=== PATIENT | male | born 1995 | race Caucasian/White ===

== ENCOUNTER 2019-04-09 16:11 | Inpatient (IN) ==
[2019-04-09] MEDS ORDERED: methylPREDNISolone 125 MG/2 ML VIAL IV STA (16:31)
[2019-04-09 16:50] LABS: Basophils # (auto) 0.03 K/uL (0-0.2); Basophils % (auto) 0.2 %; Eosinophils # (auto) 0.09 K/uL (0-0.5); Eosinophils % (auto) 0.7 %; Hematocrit (blood only) 37.9 % (42-52); Hemoglobin 13.1 g/dL (14.0-18.0); Immature Granulocytes # (auto) 0.03 K/uL (0.00-0.02); Immature Granulocytes % (auto) 0.2 %; Lymphocytes # (auto) 1.92 K/uL (1.2-3.4); Lymphocytes % (auto) 15.7 %; Mean Corpuscular Hgb Conc 34.6 g/dL (32-36); Mean Corpuscular Volume 83.8 fL (80-100); Mean Platelet Volume 10.2 fL (7.4-10.4); Monocytes # (auto) 1.25 K/uL (0.11-0.59); Monocytes % (auto) 10.2 %; Neutrophils # (auto) 8.92 K/uL (1.4-6.5); Platelet Count 271 K/uL (130-400); RDW Coefficient of Variation 12.3 % (11.5-14.5); RDW Standard Deviation 37.6 fL (36.4-46.3); Red Blood Count 4.52 M/uL (4.7-6.1); White Blood Count 12.24 K/uL (4.8-10.8)
[2019-04-09] MEDS ORDERED: DOXYCYCLINE HYCLATE 100 MG CAP PO STA (17:37)
[2019-04-09] MEDS ORDERED: metroNIDAZOLE 500 MG/100 ML BAG IV STA (17:37)
[2019-04-09 18:04] LABS: BUN Creatinine Ratio 16.6 (10-20); Blood Urea Nitrogen 13 mg/dl (7-18); Calcium 9.1 mg/dl (8.5-10.1); Carbon Dioxide 29 mmol/L (21-32); Chloride 105 mmol/L (98-107); Creatinine Clr Calc Pharmacy 144.4 ml/min; Est GFR (African American) > 150.0; Est GFR (Non-African American) 130.4; Glucose 94 mg/dl (70-99); Potassium 3.5 mmol/L (3.5-5.1); Sodium 139 mmol/L (136-145)
--- NOTE | 2019-04-09 18:12 | History & Physical Report ---
Date of Service April 09, 2019 Assessment & Plan (1) Peritonsillar abscess: 23yo C male with no significant past medical or surgical history presenting with peritonsillar abscess. Patient is afebrile, hemodynamically stable, nontoxic in appearance. Airway is patent with no stridor or drooling, speaking in normal tone. -Observation to medical floor -Will repeat CT neck to ensure abscess is not expanding or involving other spaces of head/neck -Will treat with Doxycycline 100mg IV BID and Flagyl 500mg IV q 8 hours. Patient is PCN allergic, uncertain of reaction. -Dexamethasone 2mg po q 8 hours -ENT consultation - assistance appreciated -Close monitoring of airway F/E/N - Heplock. Electrolytes WNL. 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 He developed a sore throat 10 days ago. He was seen at [facility] on 04/03/19 and was given a prescription for Clindamycin. He was taking his medications as prescribed. Developed large swelling on his left side on 04/06/19 as well as difficulty swallowing, pain in his ear and jaw. He was seen again at [facility] and told that he had a peritonsillar abscess. He presented to the ER on the same day and had a CT of the neck which confirmed a 2.1cm abscess on the left. He was treated with Clindamycin and Steroids. He was seen by ENT on 04/07/19. No surgical intervention pursued due to location of the abscess. He did not sleep well last night and had worsening of his sore throat, drooling and noted some difficulty breathing at times. Today the pain continued to worsen. He took some Ibuprofen with minimal relief. He admits to drooling, chills, difficulty swallowing and difficulty opening his mouth. Also with left ear and neck pain. ER Course: Solumedrol 125mg, Doxy 100mg, Flagyl 500mg Allergies Allergy/AdvReac Type Severity Reaction Status Date / Time Penicillins Allergy Unknown Verified 04/06/19 19:11 Home Medications Home Medications Medication Instructions Recorded Confirmed Type Lactobacillus rhamnosus GG 1 cap PO QAM 04/06/19 04/09/19 History [Culturelle] clindamycin HCl 300 mg PO TID 04/06/19 04/09/19 History ibuprofen 200 mg PO Q6H PRN 04/09/19 04/09/19 History Past Med/Surg History Social History (Updated 04/09/19 @ 18:21 by My Gamez DO) Preferred Language: Slovak Feels Safe at Home: Yes Smoking Status: Never smoker Hx Alcohol Use: Yes Alcohol Intake Frequency: Holidays/Special Occasions Hx Substance Use: No Review of Systems Review of Systems: All systems reviewed & are unremarkable except as noted in HPI & below Physical Exam Physical Exam: General: patient resting comfortably, NAD, non-toxic in appearance, AA&O x 4 Skin: warm, dry, intact, no rashes or lesions HEENT: NC/AT, PERRL, EOMI, anicteric sclera, conjunctiva without injection, external ear normal to inspection and nontender, TM pearly with good cone of light, nares patent, moist mucus membranes, dentition intact, +edematous left tonsil, airway patent, neck supple, trachea midline, Left anterior cervical LAD, no thyromegaly, no JVD, no submandibular tenderness, no facial swelling Heart: +S1/S2, regular, tachycardia, no m/r/g Lungs: equal air entry bilaterally, no rales/rhonchi/wheezes Abd: +BS, soft, NT/ND, no masses/organomegaly/ascites Ext: warm, 2+ pulses in UE/LE bilaterally, no clubbing/cyanosis or edema Neuro: nonfocal, patient AA&O x 4, speech intact, no facial droop, moving all extremities on command with equal strength 5/5 Results & Data Vital Signs (Past 12 Hours) Vital Signs Temp Pulse Resp BP Pulse Ox 04/09/19 16:39 98 04/09/19 16:15 37.5 C 102 H 20 144/76 H 98 Laboratory Results Lab Results 04/09/19 04/09/19 Range/Units 16:35 16:35 WBC 12.24 H (4.8-10.8) K/uL RBC 4.52 L (4.7-6.1) M/uL Hgb 13.1 L (14.0-18.0) g/dL Hct 37.9 L (42-52) % MCV 83.8 (80-100) fL MCH 29.0 (25-34) pg MCHC 34.6 (32-36) g/dL RDW Std Deviation 37.6 (36.4-46.3) fL RDW Coeff of Maurice 12.3 (11.5-14.5) % Plt Count 271 (130-400) K/uL MPV 10.2 (7.4-10.4) fL Immature Gran % (Auto) 0.2 % Neut % (Auto) 73.0 % Lymph % (Auto) 15.7 % [place] % (Auto) 10.2 % Eos % (Auto) 0.7 % Baso % (Auto) 0.2 % Immature Gran # (Auto) 0.03 H (0.00-0.02) K/uL Neut # (Auto) 8.92 H (1.4-6.5) K/uL Lymph # (Auto) 1.92 (1.2-3.4) K/uL [place] # (Auto) 1.25 H (0.11-0.59) K/uL Eos # (Auto) 0.09 (0-0.5) K/uL Baso # (Auto) 0.03 (0-0.2) K/uL Sodium 139 (136-145) mmol/L Potassium 3.5 (3.5-5.1) mmol/L Chloride 105 (98-107) mmol/L Carbon Dioxide 29 (21-32) mmol/L Anion Gap 5.0 (3-11) BUN 13 (7-18) mg/dl Creatinine 0.76 (0.6-1.4) mg/dl Est Cr Clr Drug Dosing 144.4 ml/min Est GFR ( Amer) > 150.0 Est GFR (Non-Af Amer) 130.4 BUN/Creatinine Ratio 16.6 (10-20) Glucose 94 (70-99) mg/dl Calcium 9.1 (8.5-10.1) mg/dl Code Status & VTE Plan Code Status FULL PG Care Time/CCT Total # of Minutes Spent Total Time Spent with Patient: Total time spent is greater than 50% in coordination of care (as documented) at patient's floor/unit and/or counseling patient: Coding Level of Care Code 90325 OBS Care - Level 2 Diagnoses Peritonsillar abscess J36
[2019-04-09] MEDS ORDERED: IBUPROFEN 200 MG TAB PO PRN (18:58)
[2019-04-09] MEDS ORDERED: ACETAMINOPHEN 325 MG TAB PO PRN (18:58)
--- NOTE | 2019-04-09 19:34 | Emergency Department Note ---
Entered by Eloy Montalvo acting as a scribe for Monroe Taylor DO History of Present Illness General Chief complaint: Shortness of Breath/Dyspnea Stated complaint: SOB, TROUBLE CHEWING AND SWALLOWING Source: patient History of Present Illness Onset (ago): day(s) 3 Location: mouth (throat) Pain Consistency: + other (worsening) Maximum Pain Intensity: 7 Quality: + other (inability to swallow) Relieved By: + medication (minimally - Clindamycin) Associated symptoms: + denies other symptoms (diarrhea, fevers) and + other (hard to breathe at times); no nausea/vomiting and no shortness of breath The patient is a 23 y/o male who presents to the ED w/ CC of a worsening ability to swallow beginning three days ago. The patient states he was evaluated in the ED three days ago for difficulty swallowing. He reports he had a CT of the neck and diagnosed with a peritonsillar abscess and was told to follow-up with ENT. The patient notes he was also discharge on Clindamycin after being given IV fluids. He states his symptoms started with a sore throat and strep throat like symptoms 8 days ago. The patient reports he has been taking 300mg of Clindamycin three times a day, and noticed some relief two days ago when he follow up with [facility] ENT. He notes the abscess was not drainable due to its location, and he was told to come to the ED if his symptoms worsened per ENT. The patient states over the past two days, his symptoms have worsened, and he is finding it harder to breathe at times, but he denies shortness of breath. He denies nausea, vomiting, diarrhea, and fevers. Home Medications Home Medications Medication Instructions Recorded Confirmed Type Lactobacillus rhamnosus GG 1 cap PO QAM 04/06/19 04/09/19 History [Culturelle] clindamycin HCl 300 mg PO TID 04/06/19 04/09/19 History ibuprofen 200 mg PO Q6H PRN 04/09/19 04/09/19 History Allergies Allergy/AdvReac Type Severity Reaction Status Date / Time Penicillins Allergy Unknown Verified 04/06/19 19:11 tree nut Allergy Anaphylaxis Verified 04/09/19 19:00 Past Med/Surg History Medical History No pertinent past medical history Surgical History No pertinent past surgical history Family History Other No pertinent family history Social History Preferred Language: Kazakh Communication Ability: Effective Physicist [place] Required: No Beliefs That Will Affect Care: None Current Living Situation: Other Current Living Situation Comment: Apartment with friend Feels Safe at Home: Yes Smoking Status: Never smoker Second Hand Exposure: Yes (At home) ; Hx Alcohol Use: Yes Alcohol type: wine and hard liquor Alcohol Intake Frequency: Holidays/Special Occasions Hx Substance Use: Yes substance use type: marijuana Review of Systems See HPI for pertinent positives & negatives. and A total of 10 systems reviewed and were otherwise negative Physical Exam Vital Signs Vital Signs - 24 hr 04/09/19 16:15 04/09/19 16:39 Temperature 37.5 C Temperature Source Oral Pulse Rate 102 H Respiratory Rate 20 Blood Pressure 144/76 H Blood Pressure Mean 98 Pulse Oximetry 98 98 Oxygen Delivery Method Room Air Room Air Sepsis Recent Fever Within 48 Hours No Sepsis Action Taken by Nursing No Action Required GENERAL: Sitting up in bed, talking in full sentences, alert, well nourished, no distress, non-toxic EYE EXAM: normal conjunctiva OROPHARYNX: no exudate, no erythema, lips, buccal mucosa, and tongue normal and mucous membranes are moist. Mild fullness to the left tonsillar fold that is firm and tender to palpation. No uvular deviation. trismus. NECK: supple, no nuchal rigidity, no adenopathy, non-tender. FROM. LUNGS: Clear to auscultation. Normal chest wall mechanics HEART: no murmurs, S1 normal and S2 normal ABDOMEN: abdomen soft, non-tender, normo-active bowel sounds, no masses, no rebound or guarding. SKIN: no rashes and no bruising UPPER EXTREMITIES: upper extremities are grossly normal. LOWER EXTREMITIES: No pitting edema. NEURO EXAM: Normal sensorium, cranial nerves II-XII grossly intact, normal speech, no gross weakness of arms, no gross weakness of legs. Course Course ED COURSE: Vital signs were reviewed and showed tachycardia and hypertension. The patients medical record was reviewed The above diagnostic studies were performed and reviewed. ED treatments and interventions as stated above. 1619: The patient was evaluated in room A09B. A complete history and physical examination was performed. 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 1706: [facility] has been paged. 1713: I discussed the patient's case with [facility]. She rec ommends the patient be greg in for IV antibiotics and steroids. 1728: Upon reevaluation, the patient is resting. I discussed my findings with the patient and he understands and agrees with the treatment plan. 1734: I reviewed the patient's case with Dr. Gamez, [facility] Hospitalist. She will evaluate the patient for further management. Based on the patients age, coexisting illnesses, exam and lab findings the decision to treat as an inpatient was made. The patient remained stable while under my care. The patient will be evaluated for further management. Administered Medications Ioversol (Optiray 320 100ml) 94 ml IV ONCE PRN PRN Reason: Interaction Checking Stop: 04/13/19 19:55 Last Admin: 04/09/19 19:57 Dose: 94 ml Documented by: [id number] Discontinued Medications Doxycycline Hyclate (Vibramycin) 100 mg PO NOW STA Stop: 04/09/19 17:38 Last Admin: 04/09/19 17:58 Dose: 100 mg Documented by: [id number] Metronidazole (Flagyl) 500 mg in 100 mls @ 100 mls/hr IV NOW STA Stop: 04/09/19 18:36 Last Infusion: 04/09/19 19:39 Dose: 0 mls/hr Documented by: [id number] Admin: 04/09/19 18:04 Dose: 100 mls/hr Documented by: [id number] Methylprednisolone (Solumedrol) 125 mg IV NOW STA Stop: 04/09/19 16:32 Last Admin: 04/09/19 16:52 Dose: 125 mg Documented by: [id number] Medical Decision Making Differential Diagnosis Differential diagnosis includes etiologies such as viral syndrome, tonsillitis, streptococcal pharyngitis, mononucleosis, peritonsillar abscess, retropharyngeal abscess, otitis, pneumonia, influenza, as well as others were entertained. Medical Records Attestation: I reviewed the patient's medical records. Home Medications Current Medication List: was personally reviewed by me Laboratory Data Attestation: I reviewed the patient's lab results. Result diagrams: 04/09/19 16:35 04/09/19 16:35 Lab Results 04/09/19 04/09/19 Range/Units 16:35 16:35 WBC 12.24 H (4.8-10.8) K/uL RBC 4.52 L (4.7-6.1) M/uL Hgb 13.1 L (14.0-18.0) g/dL Hct 37.9 L (42-52) % MCV 83.8 (80-100) fL MCH 29.0 (25-34) pg MCHC 34.6 (32-36) g/dL RDW Std Deviation 37.6 (36.4-46.3) fL RDW Coeff of [place] 12.3 (11.5-14.5) % Plt Count 271 (130-400) K/uL MPV 10.2 (7.4-10.4) fL Immature Gran % (Auto) 0.2 % Neut % (Auto) 73.0 % Lymph % (Auto) 15.7 % [place] % (Auto) 10.2 % Eos % (Auto) 0.7 % Baso % (Auto) 0.2 % Immature Gran # (Auto) 0.03 H (0.00-0.02) K/uL Neut # (Auto) 8.92 H (1.4-6.5) K/uL Lymph # (Auto) 1.92 (1.2-3.4) K/uL [place] # (Auto) 1.25 H (0.11-0.59) K/uL Eos # (Auto) 0.09 (0-0.5) K/uL Baso # (Auto) 0.03 (0-0.2) K/uL Sodium 139 (136-145) mmol/L Potassium 3.5 (3.5-5.1) mmol/L Chloride 105 (98-107) mmol/L Carbon Dioxide 29 (21-32) mmol/L Anion Gap 5.0 (3-11) BUN 13 (7-18) mg/dl Creatinine 0.76 (0.6-1.4) mg/dl Est Cr Clr Drug Dosing 144.4 ml/min Est GFR ( Amer) > 150.0 Est GFR (Non-Af Amer) 130.4 BUN/Creatinine Ratio 16.6 (10-20) Glucose 94 (70-99) mg/dl Calcium 9.1 (8.5-10.1) mg/dl Blood Pressure Blood Pressure Findings: Elevated blood pressure Blood Pressure Disposition: further management by hospitalist DAVEY Narrative Patient is a 23-year-old male who was seen here last week and diagnosed with a peritonsillar abscess. He followed up with ENT the next day due to the location a 2.1 cm abscess they did not feel it was amenable to drainage. They continued him on clindamycin and has done well up to the past 48 hours. He notes the swelling and the pain has worsened. ENT referred him in for admission and IV antibiotics. Labs show a mild leukocytosis of 12,000. No significant anemia. BMP was unremarkable. On exam he has no trismus. There is minimal swelling and fullness left tonsillar fold. Patient was ordered Flagyl and doxycycline initially. Discussed with the hospitalist for observation secondary to left peritonsillar abscess not amenable to drainage with no significant swelling or airway compromise. Patient was given IV fluids and IV steroids as well. Impression & Plan Peritonsillar abscess, Leukocytosis, Acute sore throat Discharge Plan Visit Data *Final* Discharge Date/Time: 04/09/19 18:30 Chief Complaint: Shortness of Breath/Dyspnea Stated Complaint: SOB, TROUBLE CHEWING AND SWALLOWING ED Provider: Monroe Taylor Discharge Problem: Peritonsillar abscess, Leukocytosis, Acute sore throat Patient Disposition: Being Evaluated by Hospitalist Discharge Instructions Interventions: ED Discharge Assessment Last Done: 04/09/19 18:30 Discharge Problem: Leukocytosis Qualifiers: Leukocytosis type: unspecified Qualified Code(s): D72.829 - Elevated white blood cell count, unspecified The scribe's documentation has been prepared under my direction and personally reviewed by me in its entirety. I confirm that the note above accurately reflects all work, treatment, procedures, and medical decision making performed by me.
[2019-04-09] MEDS ORDERED: IOVERSOL 100ml IV PRN (19:56)
--- NOTE | 2019-04-09 20:12 | CT Scan Report ---
CT SCAN OF THE NECK WITH IV CONTRAST CLINICAL HISTORY: Sore throat. COMPARISON STUDY: Neck CT 04/06/2019. TECHNIQUE: Following the IV administration of Optiray 320, CT scan of the soft tissues of the neck wa s performed from the skull base to the upper chest. Images are reviewed in the axial, sagittal, and c oronal planes. IV contrast was administered without complication. A dose lowering technique was uti lized adhering to the principles of ALARA. CT DOSE: 388.68 mGy.cm FINDINGS: Pharynx: There is marked left-sided peritonsillar edema. No organized peritonsillar fluid collection on the left measures 2.1 x 1.4 cm as seen on axial image #39. This causes mild narrowing of the phary ngeal airway and infiltration of the left parapharyngeal fat. There is also minimal infiltration of t he left-sided retropharyngeal fat. No retropharyngeal collection is identified. There is no evidence of mass lesion. The vocal cords are symmetric. The right-sided parapharyngeal fat in the right retrop haryngeal fat is well maintained. The epiglottis is normal. Lymphadenopathy: There are numerous enlarged cervical lymph nodes, likely reactive basis. The largest is seen on the left measures 2.1 cm in length. Thyroid: Normal in size and attenuation. Salivary glands: The parotid and submandibular glands are within normal limits. Brain parenchyma: The visualized brain parenchyma at the skull base is normal in appearance. Vascular structures: The carotid arteries and jugular veins are widely patent. Skeletal structures: Imaged portions of the calvarium at the skull base are within normal limits. The cervical spine appears intact. Orbits: The bony orbits are intact. Orbital contents are normal in appearance. Sinuses and mastoids: The visualized paranasal sinuses are clear. The mastoid air cells are well pneu matized. Lung apices: Visualized apical lung parenchyma is clear. IMPRESSION: 1. No significant change in the 2.1 cm left peritonsillar abscess with surrounding inflammation. This causes mild narrowing of the adjacent pharyngeal airway. 2. There is infiltration of the left parapharyngeal fat, as well as minimal infiltration of the left retropharyngeal fat. 3. Numerous mildly enlarged cervical lymph nodes are likely on a reactive basis. ACT 112: Negative or not required by law. Electronically signed by: Cecil Alvarez M.D. 04/09/2019 8:11 PM
[2019-04-09] MEDS: dexAMETHasone 1 MG TAB PO SCH (21:46)
[2019-04-10] MEDS: metroNIDAZOLE 500 MG/100 ML BAG IV SCH ×3 (02:16→17:05)
[2019-04-10] MEDS: DOXYCYCLINE HYCLATE 100 MG in DEXTROSE 5% 100 ML IV SCH ×2 (05:33→18:24)
[2019-04-10 05:51] LABS: Hematocrit (blood only) 41.8 % (42-52); Hemoglobin 14.5 g/dL (14.0-18.0); Immature Granulocytes # (auto) 0.02 K/uL (0.00-0.02); Immature Granulocytes % (auto) 0.2 %; Lymphocytes # (auto) 0.94 K/uL (1.2-3.4); Lymphocytes % (auto) 8.1 %; Mean Corpuscular Hemoglobin 29.2 pg (25-34); Mean Corpuscular Hgb Conc 34.7 g/dL (32-36); Mean Corpuscular Volume 84.3 fL (80-100); Mean Platelet Volume 10.6 fL (7.4-10.4); Monocytes # (auto) 0.33 K/uL (0.11-0.59); Monocytes % (auto) 2.8 %; Neutrophils # (auto) 10.31 K/uL (1.4-6.5); Neutrophils % (auto) 88.9 %; Platelet Count 305 K/uL (130-400); RDW Coefficient of Variation 12.2 % (11.5-14.5); RDW Standard Deviation 37.1 fL (36.4-46.3); Red Blood Count 4.96 M/uL (4.7-6.1)
[2019-04-10] MEDS: dexAMETHasone 1 MG TAB PO SCH ×2 (07:51→13:11)
[2019-04-10] MEDS ORDERED: LACTOBACILLUS ACIDOPHILUS (FLORANEX) TAB PO SCH (09:00)
--- NOTE | 2019-04-10 12:30 | Hospitalist Progress Note ---
Date of Service April 10, 2019 Assessment & Plan (1) Peritonsillar abscess: Has been ongoing since 04/06/2019. Repeat CT neck on 04/09 showed stable 2.1cm left-sided abscess. - On doxycycline & Flagyl. This seems sub-optimal for Gram(-); however, he is better today, so will continue for now. Patient is PCN allergic, uncertain of reaction. - Continue dexamethasone - ENT consultation - assistance appreciated - Close monitoring of airway (2) DVT prophylaxis: SCDs - Low DVT risk per admission calculator Subjective Feeling better today. Improved pain, improved neck range of motion. Less swallowing pain. Reports no fevers/chills, chest pain, shortness of breath, abdominal pain, nausea, or vomiting. Physical Exam Constitutional: WD/WN, vitals as above Eyes: EOM intact bilaterally; no conjunctival abnormality ENMT: Mouth: + oropharynx abnormality (Swelling on left tonsillar side) Neck: trachea midline, no thyromegaly normal visual inspection Respiratory: normal respiratory effort, lungs clear to auscultation no respiratory distress Cardiovascular: RRR, no murmur, no edema Gastrointestinal (Abdomen): Inspection/Auscultation: abdomen normal to inspection; abdomen not distended Musculoskeletal: no cyanosis or clubbing, extremities motor strength 5/5 Skin: no rashes, warm and dry Neurologic: moves all extremities and awake Psychiatric: Orientation: alert, oriented to person and cooperative Results & Data ([facility]) Vital Signs (Past 12 Hours) Vital Signs Temp Pulse Resp BP Pulse Ox 04/10/19 07:39 36.8 C 68 16 135/72 99 PG Care Time/CCT Total # of Minutes Spent Total Time Spent with Patient: Total time spent is greater than 50% in coordination of care (as documented) at patient's floor/unit and/or counseling patient: Coding Level of Care Code 70130 Subseq Hosp Care Lvl 2 Diagnoses Peritonsillar abscess J36 DVT prophylaxis Z29.9
[2019-04-10] MEDS ORDERED: VANCOMYCIN CONSULT ACTIVE PRN ×2 (19:10→19:58)
[2019-04-10] MEDS ORDERED: VANCOMYCIN HCL 1,750 MG in SODIUM CHLORIDE 0.9% 500 ML IV ONE (19:30)
[2019-04-10] MEDS ORDERED: cefTRIAXone SODIUM 2,000 MG in DEXTROSE 5% 50 ML IV ONE (19:30)
--- NOTE | 2019-04-10 19:35 | Pharmacy Report ---
Pharmacy Abx Initial Consult - Date of Service April 10, 2019 - Pharmacy Dosing Scope Date of Consult: 04/10/2019 Consultation requested by: Dr. Gaffney Pharmacy is consulted to initiate vancomycin IV dosing therapy, order appropriate labs and adjust drug dose/frequency. - Subjective The patient is a 23 year old M admitted on 04/09/19 18:07 with a worsening peritonsillar abscess. - Objective Height: 6 ft 1 in Weight: 66.4 kg Vital Signs (Past 12hrs): Vital Signs Temp Pulse Resp BP Pulse Ox 04/10/19 15:08 36.9 C 70 17 119/71 98 04/10/19 07:39 36.8 C 68 16 135/72 99 Lab Results (24hrs): Laboratory Tests (24 Hours) 04/10/19 05:30 WBC 11.60 H Neut # (Auto) 10.31 H - Risk Factors for Resistance * Antimicrobial use within the last 90 days (clindamycin) - Assessment & Plan Assessment 23 year old M admitted with peritonsillar abscess. Plan vancomycin for treatment of peritonsillar abscess. Vancomycin IV * Estimated PK Parameters: Vd 0.7 L/kg, Filiberto .104 hr-1, t1/2 6.6 hr * Loading dose: 1750 mg (26 mg/kg) * Maintenance dose: 1250 mg IV (18 mg/kg) every 8 hours * Goal trough level for peritonsillar abscess : 15 to 20 mcg/mL * Trough ordered for 04/10/2019 prior to noon dose. THIS IS PRIOR TO THE THIRD DOSE AND STEADY STATE. Attempting to ensure a reasonable level is being obtained in patient. Pharmacy will continue to follow and will adjust dose/frequency as necessary. Thank you.
[2019-04-10] MEDS ORDERED: AZTREONAM 2,000 MG in DEXTROSE 5% 100 ML IV SCH (19:58)
[2019-04-10] MEDS: dexAMETHasone 10 MG in SYRINGE 0 ML IV SCH (21:16)
[2019-04-11] MEDS: metroNIDAZOLE 500 MG/100 ML BAG IV SCH ×3 (01:53→23:33)
[2019-04-11] MEDS ORDERED: VANCOMYCIN HCL 1,250 MG in SODIUM CHLORIDE 0.9% 250 ML IV SCH ×2 (04:00→13:00)
[2019-04-11] MEDS: dexAMETHasone 10 MG in SYRINGE 0 ML IV SCH ×3 (05:45→21:28)
--- NOTE | 2019-04-11 07:27 | Billing Data ---
Date of Service April 10, 2019 Coding Level of Care Code 81804 Prolonged Care (int'l) Comment See note addendum for time in room.
[2019-04-11 07:36] LABS: Hematocrit (blood only) 43.2 % (42-52); Hemoglobin 14.8 g/dL (14.0-18.0); Mean Corpuscular Hemoglobin 29.3 pg (25-34); Mean Corpuscular Hgb Conc 34.3 g/dL (32-36); Mean Corpuscular Volume 85.5 fL (80-100); Mean Platelet Volume 10.9 fL (7.4-10.4); Platelet Count 299 K/uL (130-400); RDW Coefficient of Variation 12.6 % (11.5-14.5); RDW Standard Deviation 39.1 fL (36.4-46.3); Red Blood Count 5.05 M/uL (4.7-6.1)
[2019-04-11 08:13] LABS: Creatinine Clr Calc Pharmacy 167.1 ml/min; Est GFR (African American) > 150.0
[2019-04-11] MEDS ORDERED: VANCOMYCIN TROUGH ONE (11:30)
--- NOTE | 2019-04-11 11:54 | ENT Consultation ---
Date of Consultation April 11, 2019 Assessment & Plan (1) Peritonsillar abscess: patient is much improved since being on IV antibiotics. Would recommend total of 36-48 hours of directed IV therapy. I will see the patient back in 1 week for f/u. Would recommend in house PCN testing if possible. Present on Admission?: Yes History of Present Illness Attending Physician: Garrett Gaffney MD Patient was seen both in the ED and in clinic last week for the same complaint. In the ED recommendation was made for admission with IV antibiotics given no improvement on clindamycin. Patient declined. Patient seen in clinic and evaluated and no drainable area identified. Patient returned to the ED Wednesday for dysphagia. Patient has been afebrile. Patient was initially not placed on broad spectrum abx or high dose steroids. That has since been rectified after speaking with consulting doctor. Patient feels much improved since yesterday, no longer any trismus or issues with mout opening. No dysphagia or dyspnea. Allergies Allergy/AdvReac Type Severity Reaction Status Date / Time Penicillins Allergy Unknown Verified 04/06/19 19:11 tree nut Allergy Anaphylaxis Verified 04/09/19 19:00 Home Medications Home Medications Medication Instructions Recorded Confirmed Type Lactobacillus rhamnosus GG 1 cap PO QAM 04/06/19 04/09/19 History [Culturelle] clindamycin HCl 300 mg PO TID 04/06/19 04/09/19 History ibuprofen 200 mg PO Q6H PRN 04/09/19 04/09/19 History Patient History Medical History No pertinent past medical history Surgical History No pertinent past surgical history Family History Other No pertinent family history Social History Preferred Language: [place] Communication Ability: Effective Mass Spectrometry Manager Required: No Beliefs That Will Affect Care: None Current Living Situation: Other Current Living Situation Comment: Apartment with friend Other Information That Helps Us Care for You: No Feels Safe at Home: Yes Safety Concerns: Feels Safe At This Time Smoking Status: Never smoker Do You Dip or Chew Tobacco: No ; Second Hand Exposure: Yes (At home) ; Hx Alcohol Use: Yes Alcohol type: wine and hard liquor Alcohol Intake Frequency: Holidays/Special Occasions Hx Substance Use: Yes substance use type: marijuana Last Used Substance Other:: Marijuana use weeks ago per patient report Review of Systems Review of Systems: All systems reviewed & are unremarkable except as noted in HPI & below Physical Exam Physical Exam: Oral cavity: Patient's mouth opening is much improved from my exam from Wednesday. No trismus. Uvula is midline. Left tonsil is now symmetric compared to right. Results & Data Vital Signs (Past 12 Hours) Vital Signs Temp Pulse Pulse Resp BP Pulse Ox 04/11/19 10:32 61 04/11/19 07:43 36.8 C 72 16 123/73 99 04/11/19 04:18 37.0 C 65 17 124/63 97 04/11/19 00:11 37.0 C 78 16 117/70 95
--- NOTE | 2019-04-11 12:53 | Pharmacy Report ---
Pharmacy Abx Dose Short Note - Date of Service April 11, 2019 - Assessment & Plan Assessment * 23 year old M receiving VANCOMYCIN + METRONIDAZOLE IV for treatment of peritonisillar abscess * Day # 2 of antimicrobial therapy * No cultures collected * Renal fxn stable Plan Vancomycin * Trough level of 8.4 mcg/mL is subtherapeutic, however this level was drawn after 1 maintenance dose and is likely to climb w/ repeat doses * Continue dose of 1250 mg IV every 8 hours * Goal trough level for soft tissue infxn : 10 to 20 mcg/mL * Trough level ordered for tomorrow AM w/ 4th maint dose Pharmacy will continue to follow and will adjust dose/frequency as necessary. Thank you.
--- NOTE | 2019-04-11 13:57 | Hospitalist Progress Note ---
Date of Service April 11, 2019 Assessment & Plan (1) Peritonsillar abscess: Has been ongoing since 04/06/2019. Repeat CT neck on 04/09 showed stable 2.1cm left-sided abscess. - On vanc/ceftriaxone/Flagyl. Patient is PCN allergic, uncertain of reaction. - Continue dexamethasone - ENT consultation - assistance appreciated -> No need for drainage now. - Close monitoring of airway (2) Penicillin allergy: Discussed with reconditioner today. - Trial penicillin VK 25mg PO x 1, then wait an hour, and then 250 mg PO x 1. If no reaction, he is no longer allergic to penicllin. - Master At [employer] consulted (3) DVT prophylaxis: SCDs - Low DVT risk per admission calculator Subjective Improving today dramatically. Overall, in good spirits. Less trouble swallowing. Reports no fevers/chills, chest pain, shortness of breath, abdominal pain, nausea, or vomiting. Physical Exam Constitutional: WD/WN, vitals as above Eyes: EOM intact bilaterally; no conjunctival abnormality ENMT: Mouth: + oropharynx abnormality (Swelling on left tonsillar side is improved.) Mouth / Teeth: 1. Swelling, mild. 2. Improving uvula deviation Throat: + uvula not midline Neck: trachea midline, no thyromegaly normal visual inspection Respiratory: normal respiratory effort, lungs clear to auscultation no respiratory distress Cardiovascular: RRR, no murmur, no edema Gastrointestinal (Abdomen): Inspection/Auscultation: abdomen normal to inspec tion; abdomen not distended Musculoskeletal: no cyanosis or clubbing, extremities motor strength 5/5 Skin: no rashes, warm and dry Neurologic: moves all extremities and awake Psychiatric: Orientation: alert, oriented to person and cooperative Results & Data ([facility]) Vital Signs (Past 12 Hours) Vital Signs Temp Pulse Pulse Resp BP Pulse Ox 04/11/19 12:11 36.8 C 83 18 116/60 99 04/11/19 10:32 61 04/11/19 07:43 36.8 C 72 16 123/73 99 04/11/19 04:18 37.0 C 65 17 124/63 97 PG Care Time/CCT Total # of Minutes Spent Total Time Spent with Patient: Total time spent is greater than 50% in coordination of care (as documented) at patient's floor/unit and/or counseling patient: Coding Level of Care Code 64445 Subseq Hosp Care Lvl 3 Diagnoses Peritonsillar abscess J36 Penicillin allergy Z88.0 DVT prophylaxis Z29.9
[2019-04-11] MEDS ORDERED: PENICILLIN V POTASSIUM SUSP 250 MG/5 ML 200 ML PO ONE ×2 (14:30→15:30)
--- NOTE | 2019-04-11 14:54 | Allergy & Immunology Consult ---
Date of Consultation April 11, 2019 Assessment & Plan (1) Penicillin allergy: Patient presents with a remote history of a penicillin allergy. Given the time frame a reaction which occurred about a week in to the total course of penicillin, this is most likely to be a T-cell mediated reaction. Most patients tend to lose this, and pediatric patients often lose the allergy within a few months. Multiple studies have indicated that at least 95% of children will lose this type of allergy. In addition, based on recent studies, a graded oral challenge is safe and effective in ruling in or ruling out an allergy in this setting. I suspect that the risk of him still having a sensitivity to penicillin would be extremely low. The safest way to perform the penicillin challenge would be to administer 25 mg of a Pen VK oral suspension, observe for 30 minutes, then administer 250 mg, observe for 30 minutes. In the rare event that he still does have the Allergy, I would expect a mild rash to the 25 mg dose. If no symptoms arise, I do not anticipate any issues with the 250 mg dose. If no symptoms arise, the challenge will be sufficient to remove the penicillin allergy from his chart permanently. He can receive Unasyn immediately after the 30 minute observation after the 250 mg dose. If he receives Unasyn and a delayed rash occurs (hours after), please contact me. However, this would be an indication to treat "through" the rash. These delayed reactions are usually not high risk, and patients can often be treated with a nonsedating antihistamine such as cetirizine 10 mg once to twice a day total out the course of antibiotic to be completed. Please contact me if there are any questions or concerns. (2) Peritonsillar abscess: History of Present Illness Attending Physician: Garrett Gaffney MD History of Present Illness This is a 23-year-old male who presented with a sore throat about 10 days ago and was prescribed clindamycin by [facility]. Symptoms continued to develop swelling on the left side as well as difficulty swallowing and was found to have a peritonsillar abscess based on the CT of the neck. The main concern this point is his history of penicillin allergy. He received penicillin as an for a kidney infection. He received an IV form in-hospital and then went home with an oral form. After a few days at home, he developed a rash. He does not know much about this specific details as he was told all of this from his parents. He does not believe it was hive-like and does not think that required any acute care. He did not have to be hospitalized for this. He has not had any penicillins or other beta lactams since then. He does not have any other medication allergies. He does have a history of a tree nut allergy. The drug of choice in this setting would be Unasyn if he could tolerate penicillins. Allergies Allergy/AdvReac Type Severity Reaction Status Date / Time Penicillins Allergy Unknown Verified 04/06/19 19:11 tree nut Allergy Anaphylaxis Verified 04/09/19 19:00 Home Medications Home Medications Medication Instructions Recorded Confirmed Type Lactobacillus rhamnosus GG 1 cap PO QAM 04/06/19 04/09/19 History [Culturelle] clindamycin HCl 300 mg PO TID 04/06/19 04/09/19 History ibuprofen 200 mg PO Q6H PRN 04/09/19 04/09/19 History Patient History Medical History No pertinent past medical history Surgical History No pertinent past surgical history Family History Other No pertinent family history Social History Preferred Language: [place] Communication Ability: Effective Cement Mixer Required: No Beliefs That Will Affect Care: None Current Living Situation: Other Current Living Situation Comment: Apartment with friend Other Information That Helps Us Care for You: No Feels Safe at Home: Yes Safety Concerns: Feels Safe At This Time Smoking Status: Never smoker Do You Dip or Chew Tobacco: No ; Second Hand Exposure: Yes (At home) ; Hx Alcohol Use: Yes Alcohol type: wine and hard liquor Alcohol Intake Frequency: Holidays/Special Occasions Hx Substance Use: Yes substance use type: marijuana Last Used Substance Other:: Marijuana use weeks ago per patient report Review of Systems Review of Systems: All systems reviewed & are unremarkable except as noted in HPI & below Physical Exam Physical Exam: General: alert and oriented. Head: normal in appearance Ears: tympanic membranes clear bilaterally Eyes: sclera anicteric, no conjunctival injection Nose: nasal mucosa without edema, without erythema, without bogginess Throat: oropharynx clear, no cobblestoning, tonsil exam unremarkable Neck and lymphatics: without lymphadenopathy or thyromegaly. Trachea Midline. No masses appreciated. Cardiovascular: regular rate and rhythm, normal S1 and S2. No murmurs, rubs, gallops appreciated. Lungs: Clear to auscultation bilaterally. No wheezing, rhonchi, crackles. Abdomen: Soft, non-tender, normal bowel sounds. Peripheral vascular and extremities: no cyanosis, clubbing, edema. Skin: normal in appearance. No rashes or lesions visualized. Results & Data Vital Signs (Past 12 Hours) Vital Signs Temp Pulse Pulse Resp BP Pulse Ox 04/11/19 12:11 36.8 C 83 18 116/60 99 04/11/19 10:32 61 04/11/19 07:43 36.8 C 72 16 123/73 99 04/11/19 04:18 37.0 C 65 17 124/63 97 Coding Level of Care Code 19724 Inpt Consult Level 4 Diagnoses Penicillin allergy Z88.0 Peritonsillar abscess J36
[2019-04-11] MEDS ORDERED: CETIRIZINE HCL 10 MG TABLET PO PRN (18:22)
[2019-04-11] MEDS ORDERED: LINEZOLID 600 MG/300 ML D5W IV SCH (18:30)
[2019-04-11] MEDS: LINEZOLID 600 MG/300 ML BAG IV SCH (19:02)
[2019-04-11] MEDS: AMPICILLIN/SULBACTAM SOD 3,000 MG in 0.9 % SODIUM CHLORIDE 100 ML IV SCH (19:29)
[2019-04-12] MEDS: AMPICILLIN/SULBACTAM SOD 3,000 MG in 0.9 % SODIUM CHLORIDE 100 ML IV SCH ×2 (00:36→05:40)
[2019-04-12] MEDS ORDERED: VANCOMYCIN TROUGH ONE (03:30)
[2019-04-12] MEDS: dexAMETHasone 10 MG in SYRINGE 0 ML IV SCH (04:18)
[2019-04-12] MEDS: LINEZOLID 600 MG/300 ML BAG IV SCH (06:21)
[2019-04-12 07:09] LABS: Hematocrit (blood only) 43.3 % (42-52); Hemoglobin 14.4 g/dL (14.0-18.0); Mean Corpuscular Hemoglobin 28.7 pg (25-34); Mean Corpuscular Hgb Conc 33.3 g/dL (32-36); Mean Corpuscular Volume 86.3 fL (80-100); Mean Platelet Volume 10.6 fL (7.4-10.4); Platelet Count 298 K/uL (130-400); RDW Coefficient of Variation 12.5 % (11.5-14.5); RDW Standard Deviation 39.8 fL (36.4-46.3); Red Blood Count 5.02 M/uL (4.7-6.1)
[2019-04-12 07:51] LABS: BUN Creatinine Ratio 15.6 (10-20); Blood Urea Nitrogen 12 mg/dl (7-18); Calcium 9.1 mg/dl (8.5-10.1); Carbon Dioxide 27 mmol/L (21-32); Chloride 107 mmol/L (98-107); Creatinine Clr Calc Pharmacy 137.6 ml/min; Est GFR (African American) > 150.0; Est GFR (Non-African American) 129.7; Glucose 195 mg/dl (70-99); Potassium 4.1 mmol/L (3.5-5.1); Sodium 139 mmol/L (136-145)
--- NOTE | 2019-04-12 14:37 | Discharge Summary ---
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 He developed a sore throat 10 days ago. He was seen at [facility] on 04/03/19 and was given a prescription for Clindamycin. He was taking his medications as prescribed. Developed large swelling on his left side on 04/06/19 as well as difficulty swallowing, pain in his ear and jaw. He was seen again at [facility] and told that he had a peritonsillar abscess. He presented to the ER on the same day and had a CT of the neck which confirmed a 2.1cm abscess on the left. He was treated with Clindamycin and Steroids. He was seen by ENT on 04/07/19. No surgical intervention pursued due to location of the abscess. He did not sleep well last night and had worsening of his sore throat, drooling and noted some difficulty breathing at times. Today the pain continued to worsen. He took some Ibuprofen with minimal relief. He admits to drooling, chills, difficulty swallowing and difficulty opening his mouth. Also with left ear and neck pain. ER Course: Solumedrol 125mg, Doxy 100mg, Flagyl 500mg Principal Diagnosis Peritonsillar abscess Discharge Exam Constitutional WD/WN, vitals as above Eyes EOM intact bilaterally; no conjunctival abnormality ENMT Mouth: + oropharynx abnormality (Swelling on left tonsillar side is improved.) Throat: uvula midline Neck trachea midline, no thyromegaly normal visual inspection Respiratory normal respiratory effort, lungs clear to auscultation no respiratory distress Cardiovascular RRR, no murmur, no edema Gastrointestinal (Abdomen) Inspection/Auscultation: abdomen normal to inspection; abdomen not distended Musculoskeletal no cyanosis or clubbing, extremities motor strength 5/5 Skin no rashes, warm and dry Neurologic moves all extremities and awake Psychiatric Orientation: alert, oriented to person and cooperative Discharge Data Allergies Allergy/AdvReac Type Severity Reaction Status Date / Time tree nut Allergy Anaphylaxis Verified 04/09/19 19:00 Consultations 04/09/19 17:38 ED Decision to Admit Stat 04/09/19 18:58 Consult Otolaryngology (Head and Neck) Routine 04/11/19 14:01 Consult Allergy / Immunology Routine 04/11/19 18:39 Consult Infectious Diseases Routine 04/12/19 09:05 Burn CD for patient Routine Ordered Studies 04/09/19 18:58 CT soft tissue neck w con Routine Hospital Course (1) Peritonsillar abscess: Has been ongoing since 04/06/2019. Repeat CT neck on 04/09 showed stable 2.1cm left-sided abscess. - ENT consultation - assistance appreciated -> No need for drainage now. - Discharged on 10 additional days of abx for a total 2-week course. Linezolid & Augmentin sent to pharmacy. Patient will start tonight. Given a short steroids taper as well. (2) Penicillin allergy: Discussed with track laying machine operator today. - Trialed penicillin VK 25mg PO x 1, then wait an hour, and then 250 mg PO x 1. If no reaction, he is no longer allergic to penicillin. - No reaction. Penicillin removed from allergy list. If he gets a delayed rash, he will take Zyrtec BID until done with abx. (3) DVT prophylaxis: SCDs - Low DVT risk per admission calculator Total Time Total Time Spent Total Time Spent (In Minutes): 45 Discharge Plan Discharge Items Patient Disposition: Home - Self-Care Reason For Visit: PERITONSILAR ABSCESS Discharge Diagnosis: Peritonsillar abscess Activity: Resume your previous activity Non-emergency contact: Primary Care Provider and Surgeon Call non-emergency contact if: your symptoms worsen and your temperature is above 101 Follow-up/Referrals: [facility] [Non-Staff] - 04/17/19 9:40 am (Please, follow up at [facility] with Dr. Avila on WednesdayApril 17 at 9:40 am. *If you need to change this appointment, call the office at [phone]. YOUR PRESCRIPTIONS ARE BEING SENT TO [facility] AT [address] [place] [address]. THEY ARE ABLE TO ACCEPT THE GOOD RX COUPON FOR LINEZOLID. THE COUPON WAS FAXED TO THEM ON 04/11/2019. ) Ely Cabrera MD [Surgeon] - (Dr. Cabrera's office to call with discharge follow up appt. date/time. Please call Dr. Cabrera's office if you have not heard from them by Wednesday.) Diet: Regular Addtl Attending Provider Instructions: Please take your first dose of antibiotics this evening with dinner, then two times per day after. If you get a rash with the antibiotic, please use take Zyrtec every 12 hours (with the antibiotics). Finally, take prednisone 40 mg (4 pills) tomorrow (04/13/2019) in the morning, then 30 mg the next day, then 20 mg, then 10 mg (last pill), then stop. If you have a return of your symptoms, please call Dr. Cabrera's office to be seen on an urgent basis or return to the hospital. Pending Studies at Discharge: No Stand-Alone Forms: [facility], Smoking Cessation Medications and DC Order Prescriptions: New linezolid 600 mg tablet 600 mg PO BID 10 Days Qty: 20 RF: 0 amoxicillin-pot clavulanate [Augmentin] 875-125 mg tablet 1 tab PO BID Qty: 20 RF: 0 prednisone 10 mg tablet 40 mg PO DAILY Qty: 10 RF: 0 Continued Culturelle 10 billion cell Capsule 1 cap PO QAM RF: 0 ibuprofen 200 mg Tablet 200 mg PO Q6H PRN (Reason: Pain) RF: 0 Discontinued clindamycin HCl 150 mg Capsule 300 mg PO TID RF: 0 Discharge Orders: Discharge Order (Routine); Ordered 04/12/19 Ordered By: Garrett Gaffney Admission Data Admit Date/Time: 04/10/19 19:58 Attending Provider: Garrett Gaffney Admit Provider: [facility] Primary Care Provider: Christos Avila Other Providers: Garrett Gaffney ; [employer] [facility] ; Chip Hayes ; Lisset Sharp ; Ely Cabrera ; Carolee Adhikari ; Tessa Mueller Other Interventions: Discharge Summary Assessment (RN) Last Done: 04/12/19 10:31 DC Date/Time DO NOT enter until pt leaves facility: 04/12/19 11:14 Coding Level of Care Code D/C Day Management >30 mins Diagnoses Peritonsillar abscess J36 Penicillin allergy Z88.0 DVT prophylaxis Z29.9
== END 2019-04-12 11:14 | disposition home or self-care (01) | DRG 153 ==
LOC: 3N 16:11 → ED 16:11 → SUATTDRO 18:07 → 3N 18:30 → 2E 04-10 18:42 → UNDODISIN 04-12 10:38